=== PATIENT | male | born 1935 | race Caucasian/White ===

== ENCOUNTER 2022-06-26 16:08 | Emergency (ER) | payer OTHER ==
[~2022-06-26] VITALS: Ht 170.2 cm; Wt 75.0 kg
[~2022-06-26 16:08] MED LIST: ALL100T PO; ATOR-47 PO; DIGO1TAB35 PO; FURO40TA4 PO; GLIP10TA9 PO; LISI-275 PO; MET50T PO; OMEP20CA74 PO; POTA10TA32 PO; TAMS0.4C36 PO; TEMA7.5C11 PO
[2022-06-26] MEDS ORDERED: SODIUM CHLORIDE 0.9% 1,000 ML IVB ONE (19:30)
[2022-06-26 20:38] LABS: INR 1.08 (0.9-1.15); Partial Thromboplastin Time 20.5 sec (24.6-33.4)
[2022-06-26 21:06] LABS: Calcium 8.8 mg/dL (8.5-10.1); Potassium 5.5 mmol/L (3.5-5.1)
[2022-06-26 21:07] LABS: Albumin 3.5 g/dL (3.4-5.0); BUN/Creatinine Ratio 15.8; Bilirubin, Total 0.9 mg/dL (0.2-1.0); Total Protein 7.8 g/dL (6.4-8.2)
[2022-06-26 21:20] VITALS: BP 125/56
[2022-06-26 21:26] LABS: Eosinophils # (auto) 0 10 ^3/uL (0-0.8); Hemoglobin 11.2 g/dL (13.5-17.5)
[2022-06-26 21:29] LABS: Basophils # (auto) 0.1 10 ^3/uL (0-0.2); Basophils % (auto) 0.8 % (0.0-2.0); Eosinophils % (auto) 0.1 % (0.0-7.0); Hematocrit 35.4 % (41.0-53.0); Lymphocytes # (auto) 2.3 10 ^3/uL (0.4-5.4); Lymphocytes % (auto) 19.1 % (10.0-50.0); Mean Corpuscular Hemoglobin 27.3 pg (28.0-32.0); Mean Corpuscular Hgb Conc. 31.7 g/dL (32.0-36.0); Mean Corpuscular Volume 86.2 fL (80.0-100.0); Monocytes # (auto) 0.7 10 ^3/uL (0-1.3); Monocytes % (auto) 6.1 % (0.0-12.0); Neutrophils # (auto) 8.9 10 ^3/uL (1.6-8.6); Neutrophils % (auto) 73.9 % (37.0-80.0); Red Blood Cells 4.11 10^6/uL (4.5-5.90); Red Cell Distribution Width 16.7 % (11.8-14.3)
== END 2022-06-26 22:07 | disposition admitted as inpatient to this hospital (09) ==
LOC: EDBD 16:08 → ER 16:08
DX: S06.5X0A Traumatic subdural hemorrhage without loss of consciousness, initial encounter (principal); I10 Essential (primary) hypertension; E11.9 Type 2 diabetes mellitus without complications; Z79.899 Other long term (current) drug therapy; Z20.822 Contact with and (suspected) exposure to COVID-19; W19.XXXA Unspecified fall, initial encounter; Y93.89 Activity, other specified; Y92.89 Other specified places as the place of occurrence of the external cause; Y99.8 Other external cause status
CPT/HCPCS: 36415; 70450; 71045; 80053; 80320; 83605; 83735; 83880; 84484; 85610; 85730; 87426; 93005; 96360; 99285; J7030